=== PATIENT | female | born 1975 | race Caucasian/White ===

== ENCOUNTER → 2016-05-30 | Outpatient (CLI) | payer BC ==
[~2016-05-30] MED LIST: ANAPROX DS550 MG PO; ATIVAN0.5 MG PO; BACTRIM DS 8001 TA1 PO; BACTROBAN2% TP; BIRTH CONTROL1 EACH PO; CIPRO500 MG PO; CIPROFLOXACIN500 MG PO; MULTIVITAMIN1 CTB PO
== END | disposition home or self-care (01) ==
LOC: LAB 07:21
DX: Z31.41 Encounter for fertility testing (principal); E03.9 Hypothyroidism, unspecified

== ENCOUNTER → 2016-09-15 | Outpatient (CLI) | payer BC | END | disposition home or self-care (01) | LOC: MAMMO 07:06 | DX: Z12.31 Encounter for screening mammogram for malignant neoplasm of breast (principal) ==

== ENCOUNTER 2016-12-29 15:59 | Inpatient (IN) | payer BC ==
[~2016-12-29] VITALS: Ht 172.7 cm; Wt 85.8 kg
--- NOTE | ~2016-12-29 | WRIGHTHP ---
[place], [place] PATIENT HISTORY AND PHYSICAL EXAM NAME: FARSHAD GARCIAS [facility] #: [id number] UNIT #: [id number] ROOM: 512 DOCTOR: RENITA PEREZ MD BIRTHDATE: [birth year] DOS: HISTORY OF PRESENT ILLNESS: The patient is a 41-year-old female with a past medical history of: 1. Hypothyroidism. 2. Generalized anxiety disorder. 3. Vitamin D deficiency. The patient presented to my office with 3-day complaints of left-sided precordial aching chest pain off and on without shortness of breath, without nausea, vomiting. No diaphoresis. No radiation of the pain. No cough or sputum. Generally goes away at rest. The pains were worst yesterday and had somewhat increased over last 2 days. No dizziness or fainting episodes. No GI or urinary symptoms. Otherwise asymptomatic. REVIEW OF SYSTEMS: LUNGS: No increasing shortness of breath or wheezing. GASTROINTESTINAL: No nausea, vomiting, diarrhea, constipation. CARDIOVASCULAR: Complains of left-sided precordial chest pains. Otherwise no palpitation ____ symptoms. FAMILY HISTORY: Noncontributory. SOCIAL HISTORY: , 1 child. Denies smoking cigarettes, alcohol and drug abuse. FAMILY HISTORY: Noncontributory. MEDICATIONS: The patient takes vitamin D, lorazepam, levothyroxine. PHYSICAL EXAMINATION: GENERAL: Alert and oriented x 3, in no visible distress. VITAL SIGNS: The patient is afebrile, heart rate of 78 beats per minute, breathing 20 times per minute, blood pressure 140/90. HEENT AND NECK: Extraocular movements are intact. Sclerae are anicteric. Oral mucosa is moist and clean. No obvious facial weakness. Neck is supple without any lymphadenopathy. No thyromegaly. No JVD. No carotid arterial bruits. LUNGS: Clear to auscultation. No wheezing. No rhonchi. CARDIOVASCULAR SYSTEM: Heart rate is regular in rate and rhythm. S1 and S2 normally audible. No significant murmur or any other abnormal cardiac sounds. ABDOMEN: Soft, nontender. No obvious organomegaly. Bowel sounds are present. No obvious herniation. EXTREMITIES: Without significant cyanosis or edema. Warm to touch. CENTRAL NERVOUS SYSTEM: Alert and oriented x 3. Cranial nerves II-XII are intact. Speech is normal. The patient is able to move all extremities. Normal muscle strength. Deep tendon reflexes are equal on both sides. Plantars were downgoing. [place], [place] PATIENT HISTORY AND PHYSICAL EXAM [facility]: [id number] UNIT #: [id number] ROOM: 512 DOCTOR: CHRIS CORNEJO,ERNITA Engel BIRTHDATE: [birth year] IMPRESSION AND PLAN: 1. The patient with left-sided precordial chest pains, sensation of aching, otherwise asymptomatic. The pain goes off and on. EKG checked in the office showed normal sinus rhythm and no acute ST-T abnormality, normal EKG. The patient was given aspirin 324 mg to chew and then she will be continued on 81 mg of aspirin daily. I am checking troponin I levels every 8 hours x 3 and if normal, she can be discharged to home and then outpatient cardiac stress test will be scheduled on Sunday. The patient will be kept on a regular diet. 2. Hypothyroidism, for which I will provide supplements. 3. Generalized anxiety disorder, for which patient takes Ativan on p.r.n. basis, which will be continued. RENITA PEREZ MD CM:HISPHYS:PATIENT HISTORY AND PHYSICAL EXAMINATION 26 04 RENITA PEREZ MD 12/29/161905 interface
--- NOTE | ~2016-12-29 | PR ---
[place], [place] PROGRESS NOTE [id number] #: [id number] ROOM: 512 DOCTOR: ARY MAYO MD BIRTHDATE: [birth year] DOS: 12/30/2016 SUBJECTIVE: The patient came into the office with complaints of chest pain. The patient's pain was like heaviness in her chest without any radiation, not associated with any shortness of breath or diaphoresis. She has had some reflux symptoms at times for which she takes Tums. OBJECTIVE: VITAL SIGNS: Graphic trend shows a pressure of 122/77, pulse of 72, respirations 20, temperature 98.2. LUNGS: Diminished breath sounds, clear. HEART: Regular. ABDOMEN: Soft. EXTREMITIES: Without any edema. No rebound tenderness over the chest wall. LABORATORY DATA: No EKG available from admission. Troponin all 3 sets have been negative. No other labs available. ASSESSMENT AND PLAN: 1. This is a 41-year-old who comes in with chest pain, was admitted under Dr. Verduzco's services. Please review the H and P for further details. I will get an EKG today, if it looks normal, the patient should be able to go home. She has already been scheduled for an outpatient stress test for Sunday. 2. Hypothyroidism. Continue home medications. ARY MAYO MD CM:PNTRANS [id number] ARY MAYO MD 12/30/16 1208 interface
[2016-12-29 16:34] VITALS: BP 140/90
[2016-12-29] MEDS ORDERED: Synthroid,Levo50 MCG PO (16:34)
[2016-12-29] MEDS ORDERED: VITAMIN D34000 UNIT PO (16:35)
[2016-12-29 20:00] VITALS: BP 139/82
[2016-12-30] VITALS: BP 124/78
[2016-12-30 04:00] VITALS: BP 108/66
[2016-12-30 08:04] VITALS: BP 122/77
== END 2016-12-30 08:52 | disposition home or self-care (01) | DRG 313 ==
LOC: 5E 15:59
DX: R07.89 Other chest pain (principal); E03.9 Hypothyroidism, unspecified; F41.1 Generalized anxiety disorder

== ENCOUNTER → 2017-01-02 | Outpatient (CLI) | payer BC ==
[~2017-01-02] MED LIST changes: +Synthroid,Levo50 MCG PO; +VITAMIN D34000 UNIT PO; +ZOLOFT50 MG PO
--- NOTE | ~2017-01-02 | ST ---
[place], [place] EXERCISE STRESS TEST REPORT NAME: FARSHAD GARCIAS UNIT #: [id number] ROOM: DOCTOR: RENITA PEREZ MD BIRTHDATE: [birth year] DOS: 01/02/2017 TREADMILL CARDIOLITE STRESS TEST TIME: 8:30 a.m. The patient is a 41-year-old female weighing 188 pounds with recent admission to [facility] for left-sided precordial chest pain. The patient was then tested under standard Tha protocol and she exercised for a total of 10 minutes reaching a maximal heart rate of 165 beats per minute, which is 93% of the PMHR. Good exercise tolerance. Peak blood pressure was 162 systolic over 74 diastolic. Baseline EKG showed normal sinus rhythm with a heart rate of 75 beats per minute and normal cardiac axis, no ST-T abnormality. During the exercise and recovery phase, the patient did not develop any angina-like symptoms and no significant EKG is compatible with myocardial ischemia. The patient was injected with Cardiolite during the peak phase of exercise. IMPRESSION: Normal EKG part of the treadmill test with Cardiolite at 93% PMHR. Cardiolite results to be reported by Dr. Munoz separately later today. RENITA PEREZ MD CM:STRESS:EXERCISE STRESS TEST REPORT [id number] RENITA PEREZ MD
--- NOTE | 2017-01-02 09:20 | NUR ---
INFORMED CONSENT SIGNED FOR CARDIOLYTE STRESS TEST WITH DR. PEREZ. RESTING EKG NSR, HR 75, BP 162/90. COMPLETED 10:00 OF A STANDARD ZABRINA PROTOCOL COMPLETING 1:00 STAGE IV, 4.2 MPH/16% GRADE. PEAK HEART RATE OF 165 ACHIEVED WHICH IS 93% PREDICTED MAXIMUM AND A PEAK BP OF 162/74. NO ARRHYTHMIAS OR ST CHANGES NOTED. TEST TERMINATED AT PHYSICIANS DISCREATION. HAS A GOOD EXERCISE TOLERANCE. LAST RECOVERY HR 104, BP 150/74. WAITING NUCLEAR SCANNING IN STABLE CONDITION.
== END | disposition home or self-care (01) ==
LOC: CARD 00:50
DX: R07.89 Other chest pain (principal)

== ENCOUNTER → 2017-09-26 | Outpatient (CLI) | payer BC ==
[2017-09-26 12:12] LABS: BASO % 0.5 % (0.0-1.0); EOS # 0.1 10*3/uL (0.0-0.4); EOS % 0.6 % (1.0-4.0); HEMATOCRIT 41.8 % (37.0-47.0); HEMOGLOBIN 13.9 g/dl (12.0-16.0); LYMPH # 2.9 10*3/uL (1.3-4.4); LYMPH % 36.8 % (27.0-41.0); MEAN CELL VOLUME 93.3 fl (81.0-99.0); MEAN CORPUSCULAR HGB CONC 33.3 g/dl (33.0-37.0); MEAN PLATELET VOLUME 9.2 fl (9.6-12.3); MONO # 0.4 10*3/uL (0.1-1.0); MONO % 4.9 % (3.0-9.0); NEUT # 4.5 10*3/uL (2.3-7.9); NEUT % 56.9 % (47.0-73.0); PLATELET COUNT AUTOMATED 293 10*3/uL (130-400); RED BLOOD COUNT 4.48 10*6/uL (4.10-5.10); RED CELL DISTRI WIDTH 12.9 % (0-14.5); WHITE BLOOD COUNT 7.9 10*3/uL (4.8-10.8)
[2017-09-26 12:24] LABS: ALBUMIN 3.9 gm/dl (3.1-4.5); ALKALINE PHOSPHATASE 85 U/L (45-117); BUN 9 mg/dl (7-24); CHLORIDE 103 mmol/L (98-107); CHOLESTEROL 163 mg/dL (<200); CREATININE 0.74 mg/dL (0.55-1.02); HDL CHOLESTEROL 49 mg/dl (40-60); LDL CHOLESTEROL 84 mg/dL (9-159); POTASSIUM 3.9 mmol/L (3.5-5.1); SGOT/AST 14 IU/L (3-35); SGPT/ALT 18 U/L (12-78); SODIUM 137 mmol/L (136-145); TOTAL PROTEIN 7.9 gm/dL (6.4-8.2); TRIGLYCERIDES 152 mg/dl (<150); VLDL CHOLESTEROL 30 mg/dL (6-40)
[2017-09-26 12:30] LABS: FREE T4 1.09 ng/dl (0.76-1.46)
[2017-09-26 13:59] LABS: VITAMIN D, 25-HYDROXY 26.8 ng/mL (30-100)
== END | disposition home or self-care (01) ==
LOC: LAB 11:30
PROVIDERS: Internal Medicine
DX: Z13.1 Encounter for screening for diabetes mellitus (principal); Z13.220 Encounter for screening for lipoid disorders; E53.8 Deficiency of other specified B group vitamins; I10 Essential (primary) hypertension; E03.9 Hypothyroidism, unspecified; R53.81 Other malaise; E55.9 Vitamin D deficiency, unspecified

== ENCOUNTER → 2019-03-11 | Outpatient (CLI) | payer BC ==
[2019-03-11 07:53] LABS: BASO # 0.1 10*3/uL (0.0-0.1); BASO % 1.2 % (0.0-1.0); EOS # 0.1 10*3/uL (0.0-0.4); EOS % 1.9 % (1.0-4.0); HEMATOCRIT 40.8 % (37.0-47.0); HEMOGLOBIN 13.1 g/dl (12.0-16.0); LYMPH # 2.3 10*3/uL (1.3-4.4); LYMPH % 34.1 % (27.0-41.0); MEAN CELL VOLUME 93.4 fl (81.0-99.0); MEAN CORPUSCULAR HGB CONC 32.1 g/dl (33.0-37.0); MEAN PLATELET VOLUME 8.9 fl (9.6-12.3); MONO # 0.4 10*3/uL (0.1-1.0); MONO % 5.9 % (3.0-9.0); NEUT # 3.9 10*3/uL (2.3-7.9); NEUT % 56.6 % (47.0-73.0); PLATELET COUNT AUTOMATED 396 10*3/uL (130-400); RED BLOOD COUNT 4.37 10*6/uL (4.10-5.10); RED CELL DISTRI WIDTH 13.1 % (0-14.5); WHITE BLOOD COUNT 6.8 10*3/uL (4.8-10.8)
[2019-03-11 08:07] LABS: ALBUMIN 3.8 gm/dl (3.1-4.5); ALKALINE PHOSPHATASE 81 U/L (45-117); BUN 7 mg/dl (7-24); CHLORIDE 104 mmol/L (98-107); CHOLESTEROL 215 mg/dL (<200); CREATININE 0.69 mg/dL (0.55-1.02); FREE T4 1.06 ng/dl (0.76-1.46); HDL CHOLESTEROL 45 mg/dl (40-60); LDL CHOLESTEROL 130 mg/dL (9-159); POTASSIUM 4.1 mmol/L (3.5-5.1); SGOT/AST 14 IU/L (3-35); SGPT/ALT 24 U/L (12-78); SODIUM 137 mmol/L (136-145); TOTAL PROTEIN 7.8 gm/dL (6.4-8.2); TRIGLYCERIDES 201 mg/dl (<150); VLDL CHOLESTEROL 40 mg/dL (6-40)
[2019-03-11 08:12] LABS: THYROID STIM HORMONE (HS) 0.953 uIU/ml (0.358-4.75)
[2019-03-11 09:09] LABS: VITAMIN D, 25-HYDROXY 35.1 ng/mL (30-100)
== END | disposition home or self-care (01) ==
LOC: LAB 07:09
PROVIDERS: Internal Medicine
DX: E03.9 Hypothyroidism, unspecified (principal); E55.9 Vitamin D deficiency, unspecified

== ENCOUNTER → 2019-06-24 | Outpatient (CLI) | payer BC | END | disposition home or self-care (01) | LOC: LAB 12:18 | DX: Z32.01 Encounter for pregnancy test, result positive (principal) ==

== ENCOUNTER → 2019-12-30 | Outpatient (CLI) | payer BC, OTHER ==
[2019-12-30 09:57] LABS: BASO # 0.1 10*3/uL (0.0-0.1); BASO % 0.6 % (0.0-1.0); EOS % 0.5 % (1.0-4.0); HEMATOCRIT 42.2 % (37.0-47.0); LYMPH # 2.3 10*3/uL (1.3-4.4); MEAN CELL VOLUME 88.5 fl (81.0-99.0); MEAN CORPUSCULAR HGB 27.9 pg (27.0-31.0); MEAN CORPUSCULAR HGB CONC 31.5 g/dl (33.0-37.0); MEAN PLATELET VOLUME 8.8 fl (9.6-12.3); MONO # 0.4 10*3/uL (0.1-1.0); MONO % 5.3 % (3.0-9.0); NEUT # 5.3 10*3/uL (2.3-7.9); NEUT % 65.4 % (47.0-73.0); PLATELET COUNT AUTOMATED 356 10*3/uL (130-400); RED BLOOD COUNT 4.77 10*6/uL (4.10-5.10); WHITE BLOOD COUNT 8.2 10*3/uL (4.8-10.8)
[2019-12-30 10:15] LABS: ALBUMIN 3.8 gm/dl (3.1-4.5); ALKALINE PHOSPHATASE 91 U/L (45-117); BUN 8 mg/dl (7-24); CHLORIDE 106 mmol/L (98-107); CHOLESTEROL 204 mg/dL (<200); CPK 70 U/L (26-192); CREATININE 0.83 mg/dL (0.55-1.02); HDL CHOLESTEROL 50 mg/dl (40-60); LDL CHOLESTEROL 125 mg/dL (9-159); POTASSIUM 4.1 mmol/L (3.5-5.1); SGOT/AST 13 IU/L (3-35); SGPT/ALT 22 U/L (12-78); SODIUM 138 mmol/L (136-145); TRIGLYCERIDES 146 mg/dl (<150); VLDL CHOLESTEROL 29 mg/dL (6-40)
[2019-12-30 10:42] LABS: VITAMIN D, 25-HYDROXY 42.3 ng/mL (30-100)
== END | disposition home or self-care (01) ==
LOC: LAB 09:42
PROVIDERS: Internal Medicine
DX: Z00.00 Encounter for general adult medical examination without abnormal findings (principal); E55.9 Vitamin D deficiency, unspecified; E03.9 Hypothyroidism, unspecified; E78.2 Mixed hyperlipidemia

== ENCOUNTER → 2020-10-12 | Outpatient (CLI) | payer BC, OTHER | END | disposition home or self-care (01) | LOC: LAB 14:21 | PROVIDERS: ATTEND Internal Medicine | DX: N91.2 Amenorrhea, unspecified (principal) ==

== ENCOUNTER → 2020-10-19 | Outpatient (CLI) | payer BC, OTHER ==
[2020-10-19 07:46] LABS: BASO % 0.6 % (0.0-1.0); EOS # 0.1 10*3/uL (0.0-0.4); EOS % 0.9 % (1.0-4.0); HEMATOCRIT 41.7 % (37.0-47.0); LYMPH # 2.1 10*3/uL (1.3-4.4); LYMPH % 31.9 % (27.0-41.0); MEAN CELL VOLUME 91.6 fl (81.0-99.0); MEAN CORPUSCULAR HGB 30.1 pg (27.0-31.0); MEAN CORPUSCULAR HGB CONC 32.9 g/dl (33.0-37.0); MONO # 0.4 10*3/uL (0.1-1.0); MONO % 5.9 % (3.0-9.0); NEUT # 3.9 10*3/uL (2.3-7.9); NEUT % 60.4 % (47.0-73.0); PLATELET COUNT AUTOMATED 320 10*3/uL (130-400); RED BLOOD COUNT 4.55 10*6/uL (4.10-5.10); RED CELL DISTRI WIDTH 13.1 % (0-14.5); WHITE BLOOD COUNT 6.5 10*3/uL (4.8-10.8)
[2020-10-19 08:18] LABS: ALBUMIN 3.7 gm/dl (3.1-4.5); ALKALINE PHOSPHATASE 74 U/L (45-117); BUN 7 mg/dl (7-24); CHLORIDE 104 mmol/L (98-107); CHOLESTEROL 160 mg/dL (<200); CREATININE 0.68 mg/dL (0.55-1.02); LDL CHOLESTEROL 85 mg/dL (9-159); POTASSIUM 3.9 mmol/L (3.5-5.1); SGOT/AST 8 IU/L (3-35); SGPT/ALT 18 U/L (12-78); SODIUM 138 mmol/L (136-145); TOTAL PROTEIN 7.3 gm/dL (6.4-8.2); TRIGLYCERIDES 114 mg/dl (<150)
[2020-10-19 08:43] LABS: VITAMIN D, 25-HYDROXY 32.6 ng/mL (30-100)
== END | disposition home or self-care (01) ==
LOC: LAB 07:20
PROVIDERS: ATTEND Internal Medicine
DX: Z00.01 Encounter for general adult medical examination with abnormal findings (principal); D52.9 Folate deficiency anemia, unspecified; D51.9 Vitamin B12 deficiency anemia, unspecified; R70.0 Elevated erythrocyte sedimentation rate; R79.82 Elevated C-reactive protein (CRP); R74.8 Abnormal levels of other serum enzymes; R79.89 Other specified abnormal findings of blood chemistry; R53.81 Other malaise; E55.9 Vitamin D deficiency, unspecified; E03.9 Hypothyroidism, unspecified; F41.1 Generalized anxiety disorder; Z13.0 Encounter for screening for diseases of the blood and blood-forming organs and certain disorders involving the immune mechanism; Z13.1 Encounter for screening for diabetes mellitus; Z13.21 Encounter for screening for nutritional disorder; Z13.220 Encounter for screening for lipoid disorders

== ENCOUNTER 2021-05-09 07:33 | Emergency (ER) | payer BC, OTHER ==
[~2021-05-09] VITALS: Ht 172.7 cm; Wt 101.6 kg
[2021-05-09 07:54] LABS: BASO % 0.4 % (0.0-1.0); EOS # 0.1 10*3/uL (0.0-0.4); EOS % 0.5 % (1.0-4.0); HEMATOCRIT 34.2 % (37.0-47.0); MEAN PLATELET VOLUME 8.2 fl (9.6-12.3); MONO # 0.5 10*3/uL (0.1-1.0); MONO % 5.7 % (3.0-9.0); NEUT # 6.6 10*3/uL (2.3-7.9); NEUT % 71.1 % (47.0-73.0); PLATELET COUNT AUTOMATED 323 10*3/uL (130-400); RED BLOOD COUNT 3.64 10*6/uL (4.10-5.10); RED CELL DISTRI WIDTH 13.8 % (0-14.5); WHITE BLOOD COUNT 9.3 10*3/uL (4.8-10.8)
[2021-05-09 08:10] LABS: ALBUMIN 2.5 gm/dl (3.1-4.5); ALKALINE PHOSPHATASE 129 U/L (45-117); BUN 10 mg/dl (7-24); CHLORIDE 107 mmol/L (98-107); CREATININE 0.79 mg/dL (0.55-1.02); POTASSIUM 3.2 mmol/L (3.5-5.1); SGOT/AST 17 IU/L (3-35); SGPT/ALT 18 U/L (12-78); SODIUM 137 mmol/L (136-145); TOTAL PROTEIN 6.8 gm/dL (6.4-8.2)
[2021-05-09 08:47] VITALS: BP 102/55
== END 2021-05-09 09:07 | disposition home or self-care (01) ==
LOC: ED 07:33
PROVIDERS: Emergency Medicine
DX: O26.891 Other specified pregnancy related conditions, first trimester (principal); R42 Dizziness and giddiness; Z3A.01 Less than 8 weeks gestation of pregnancy

== ENCOUNTER → 2021-09-22 | Outpatient (CLI) | payer BC, OTHER | END | disposition home or self-care (01) | LOC: LAB 10:40 | PROVIDERS: ATTEND Internal Medicine | DX: N91.2 Amenorrhea, unspecified (principal) ==

== ENCOUNTER 2021-10-09 10:53 | Emergency (ER) | payer BC, OTHER ==
[2021-10-09 11:01] VITALS: BP 145/79
== END 2021-10-09 11:21 | disposition home or self-care (01) ==
LOC: ED 10:53
DX: Z31.82 Encounter for Rh incompatibility status (principal)